=== PATIENT | male | born 1950 | race Hispanic/Latino ===

== ENCOUNTER 2019-11-20 11:10 | Outpatient (CLI) | payer MEDICARE | END 2019-11-20 11:11 | disposition home or self-care (01) | LOC: CTENTCT 11:10 | PROVIDERS: ATTEND Otolaryngology Plastic Surgery within the Head & Neck | DX: J32.8 Other chronic sinusitis (principal) | CPT/HCPCS: 70486 ==

== ENCOUNTER 2020-02-14 19:30 | Outpatient (CLI) | payer MEDICARE | END 2020-02-14 19:31 | disposition home or self-care (01) | LOC: SLEEPLAB 19:30 | PROVIDERS: ATTEND Family Medicine | DX: G47.33 Obstructive sleep apnea (adult) (pediatric) (principal); G47.61 Periodic limb movement disorder; K21.9 Gastro-esophageal reflux disease without esophagitis; R06.83 Snoring; E66.9 Obesity, unspecified; I10 Essential (primary) hypertension; I25.10 Atherosclerotic heart disease of native coronary artery without angina pectoris; G47.00 Insomnia, unspecified; Z68.29 Body mass index [BMI] 29.0-29.9, adult | CPT/HCPCS: 95810 ==

== ENCOUNTER 2020-03-02 19:00 | Outpatient (CLI) | payer MEDICARE | END 2020-03-02 19:01 | disposition home or self-care (01) | LOC: SLEEPLAB 19:00 | PROVIDERS: ATTEND Family Medicine | DX: F51.9 Sleep disorder not due to a substance or known physiological condition, unspecified (principal); G47.33 Obstructive sleep apnea (adult) (pediatric); G47.61 Periodic limb movement disorder; K21.9 Gastro-esophageal reflux disease without esophagitis; R06.83 Snoring; I10 Essential (primary) hypertension; G47.10 Hypersomnia, unspecified; E66.9 Obesity, unspecified; Z68.29 Body mass index [BMI] 29.0-29.9, adult | CPT/HCPCS: 95811 ==